=== PATIENT | male | born 2005 | race Caucasian/White ===

== ENCOUNTER 2023-08-21 18:31 | Emergency (ER) | payer SELFPAY ==
[~2023-08-21] VITALS: Ht 162.6 cm; Wt 59.0 kg
[2023-08-21 18:37] VITALS: BP 119/70; PULSE 112; RESP 16; TEMP 98.2; O2SAT 98
[2023-08-21] MEDS ORDERED: ONDANSETRON 4MG ODT PO ONE (19:00)
[2023-08-21] MEDS: ONDANSETRON 4MG ODT PO NR (23:44)
== END 2023-08-21 23:46 | disposition home or self-care (01) ==
LOC: ER 20:08
DX: F10.129 Alcohol abuse with intoxication, unspecified (principal); Y90.9 Presence of alcohol in blood, level not specified
CPT/HCPCS: 82962; 99283